=== PATIENT | male | born 1970 | race Caucasian/White ===

== ENCOUNTER 2019-03-11 10:48 | Emergency (ER) | payer BC ==
[~2019-03-11] VITALS: Ht 177.8 cm; Wt 86.2 kg
[2019-03-11] MEDS ORDERED: HYDROXYZINE HCL25 MG PO (11:35)
== END 2019-03-11 11:48 | disposition home or self-care (01) ==
LOC: FSED 10:48
DX: L25.9 Unspecified contact dermatitis, unspecified cause (principal)
CPT/HCPCS: 99282